=== PATIENT | female | born 1995 | race Caucasian/White ===

== ENCOUNTER 2019-07-12 16:29 | Emergency (ER) | payer MEDICAID, SELFPAY ==
[2019-07-12 16:33] VITALS: BP 141/91; PULSE 108; RESP 20; TEMP 37.9; O2SAT 100
--- NOTE | 2019-07-12 17:35 | ED.URI ---
HPI - URI/Sore Throat General Chief Complaint: Upper Respiratory Infection <BABAR Woodruff Last Filed: 07/12/19 19:20> Stated Complaint: sore throat <BABAR Woodruff Last Filed: 07/12/19 19:20> Time Seen by Provider: 07/12/19 17:10 <BABAR Woodruff Last Filed: 07/12/19 19:20> Source: patient <BABAR Woodruff Last Filed: 07/12/19 19:20> Mode of arrival: ambulatory <BABAR Woodruff Last Filed: 07/12/19 19:20> Limitations: no limitations <BABAR Woodruff Last Filed: 07/12/19 19:20> History of Present Illness HPI Narrative: Patient presents to the ER for sore throat x 2 days. Reports she was seen at the urgent care for this and started on a Z pac. Reports she started the antibiotic yesterday. Reports continued pain and swelling in the throat. Also reports fever. Denies shortness of breath. <BABAR Woodruff Last Filed: 07/12/19 19:20> Related Data Home Medications: Home Medications Medication Instructions Recorded Confirmed No Home Medications 07/12/19 07/12/19 <BABAR Woodruff Last Filed: 07/12/19 19:20> Allergies/Adverse Reactions: Allergies Allergy/AdvReac Type Severity Reaction Status Date / Time Penicillins Allergy Rash Verified 07/12/19 17:37 <BABAR Woodruff Last Filed: 07/12/19 19:20> Review of Systems Review of Systems: Narrative: CONSTITUTIONAL: Reports fever ENT: Reports sore throat. Denies dysphagia RESPIRATORY: Denies dyspnea. <BABAR Woodruff Last Filed: 07/12/19 19:20> All systems reviewed & are unremarkable except as noted in HPI and below <BABAR Woodruff Last Filed: 07/12/19 19:20> [facility] Past Medical History Medical History: Medical History (Updated 07/12/19 @ 19:19 by Allison Johnson PA-C) No active medical problems <Allison Johnson PA-C - Last Filed: 07/12/19 19:20> Social History Social History: Social History (Updated 07/12/19 @ 17:43 by Allison Johnson PA-C) Smoking status: Never smoker Gender identity (if verbalized by the patient): Female <Allison Johnson PA-C - Last Filed: 07/12/19 19:20> Exam Narrative: Exam Narrative: GENERAL: Well-appearing, well-nourished, and in no acute distress. HEAD: Normocephalic, atraumatic. EYES: EOMI. ENT: Mucous membranes moist. Oropharynx with moderate symmetric tonsillar hypertrophy and exudate, no other lesions. Uvula is midline. No trismus NECK: Supple. Tender cervical adenopathy CHEST: Clear to auscultation. No respiratory distress. No wheezes rales or rhonchi HEART: Regular rate and rhythm. No murmur heard. Normal peripheral pulses. EXTREMITIES: Normal range of motion. No edema. SKIN: Warm, dry, no rash. NEURO: No focal deficits. Alert and oriented x3. 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 Patient at bedside in conjunction with physician assistant manager. Patient with bilateral tonsillar hypertrophy, erythema, and exudates. Patient has mild to moderate uvular swelling, but uvula is midline. There is no evidence of any peritonsillar abscess or deviation of uvula noted. Patient without any significant trismus at this time. Patient will be given Decadron for symptom management and evaluated for strep and mono. Patient is already on antibiotics for her pharyngitis after having tested negative for strep at urgent care yesterday <Gaviota Bush MD - Last Filed: 07/12/19 17:40> Vital Signs Vital signs: Vital Signs Temperature 100.3 F H 07/12/19 16:33 Pulse Rate 108 H 07/12/19 16:33 Respiratory Rate 20 07/12/19 16:33 Blood Pressure 141/91 H 07/12/19 16:33 Pulse Oximetry 100 07/12/19 16:33 Temperature 100.
[2019-07-12] MEDS: KETOROLAC 10 MG TABLET PO (17:56)
[2019-07-12 19:27] VITALS: BP 133/80; PULSE 98; RESP 20; O2SAT 99
== END 2019-07-12 19:28 | disposition home or self-care (01) ==
PROVIDERS: Emergency Provider Emergency Medicine
DX: J02.0 Streptococcal pharyngitis (principal)
CPT/HCPCS: 87880; 96372; 99283; A9270; J1100